=== PATIENT | female | born 1975 | race Caucasian/White ===

== ENCOUNTER → 2017-03-23 | Outpatient (CLI) | payer OTHER | LOC: FIMAGING 08:08 | PROVIDERS: ATTEND Obstetrics & Gynecology | DX: Z12.31 Encounter for screening mammogram for malignant neoplasm of breast (principal) | CPT/HCPCS: G0202 ==

== ENCOUNTER → 2017-06-27 | Outpatient (CLI) | payer OTHER | LOC: FIMAGING 08:50 | PROVIDERS: ATTEND Nurse Practitioner Women's Health | DX: N60.01 Solitary cyst of right breast (principal) ==

== ENCOUNTER → 2018-10-22 | Outpatient (CLI) | payer OTHER | LOC: FIMAGING 07:38 | PROVIDERS: ATTEND Radiology Diagnostic Radiology | DX: I83.812 Varicose veins of left lower extremity with pain (principal); I87.8 Other specified disorders of veins; I87.2 Venous insufficiency (chronic) (peripheral); N90.89 Other specified noninflammatory disorders of vulva and perineum ==

== ENCOUNTER 2019-02-01 07:41 | Day surgery (SDC) | payer OTHER ==
[2019-02-01] MEDS ORDERED: NS 1,000 ML IV ONE (07:48)
[2019-02-01] MEDS ORDERED: PROTAMINE SULFATE 50 MG/5 ML VIAL IVP PRN (07:48)
[2019-02-01] MEDS ORDERED: ALTEPLASE 2 MG VIAL IVP PRN (07:48)
[2019-02-01] MEDS ORDERED: fentaNYL 100 MCG/2 ML INJ IVP PRN (07:48)
[2019-02-01] MEDS ORDERED: NALOXONE HCL 0.4 MG/ML INJ IVP PRN (07:48)
[2019-02-01] MEDS ORDERED: ceFAZolin 2 GM/DEXTROSE 100 ML IV ONE (07:48)
[2019-02-01] MEDS ORDERED: ONDANSETRON 4 MG/2 ML VIAL IVP ONE (07:48)
[2019-02-01] MEDS ORDERED: MIDAZOLAM 2 MG/2 ML VIAL IVP PRN (07:48)
[2019-02-01] MEDS ORDERED: MEPERIDINE 25 MG/ML SYR IVP PRN (07:48)
[2019-02-01] MEDS ORDERED: HEPARIN 10,000 UNIT/10 ML MDV (1,000 UNIT/ML) IVP PRN (07:48)
[2019-02-01] MEDS ORDERED: GLUCAGON HCL 1 MG VIAL IVP PRN (07:48)
[2019-02-01] MEDS ORDERED: FLUMAZENIL 0.5 MG/5 ML MDV IVP PRN (07:48)
[2019-02-01] MEDS ORDERED: SODIUM TETRADECYL SULFATE 3% 2 ML VIAL IV ONE (08:43)
[2019-02-01] MEDS ORDERED: LIDO/EPI 1% **for epidural** 30 ML SDV ONE (08:43)
[2019-02-01] MEDS ORDERED: fentaNYL 100 MCG/2 ML INJ ONE (09:05)
[2019-02-01] MEDS ORDERED: FLUMAZENIL 0.5 MG/5 ML MDV IVP ONE ×2 (09:05→09:54)
[2019-02-01] MEDS ORDERED: MIDAZOLAM 2 MG/2 ML VIAL ONE (09:05)
[2019-02-01] MEDS ORDERED: NALOXONE HCL 0.4 MG/ML INJ ONE ×2 (09:05→09:54)
--- NOTE | 2019-02-01 09:05 | PDGENHP ---
History & Physical Chief Complaint: LT LEG AND VULVAR VARICES History of Present Illness: PELVIC CONGESTION SYNDROME Pertinent Past, Social, Family History: N/A Relevant Physical Exam: ROPEY VARICOSE VEINS MAPPED OUT. Cardiorespiratory Assessment: RRR, CTA
--- NOTE | 2019-02-01 09:06 | PDPROPOC ---
Sedation Plan of Care Sedation Plan of Care: vital signs stable, mental status noted, patient educated of risks, benefits, alternatives, patient can tolerate sedation ASA Classification: ASA 1 Planned drugs: fentanyl, midazolam Mallampati Score: Class 2 Mallampati Reference Image: Patient passed 3-3-2 rule?: Yes
[2019-02-01] MEDS ORDERED: ONDANSETRON 4 MG/2 ML VIAL IVP PRN (10:09)
[2019-02-01] MEDS ORDERED: ACETAMINOPHEN 325 MG TAB PO PRN (10:09)
--- NOTE | 2019-02-01 10:09 | PDRADPN ---
Radiology Procedure Note Date of Procedure: 02/01/19 Radiologist: Raina Donahue Anesthesia: IV Sedation Pre-op Diagnosis: LLE VARICOSE VEINS Post-op Diagnosis: SAME Indication: PAIN AND SWELLING Procedure: PHLEBECTOMY AND SCLEROTHERAPY Inf/Abcess present in the surg proc area at time of surgery?: No
[2019-02-01 13:51] VITALS: BP 92/65
== END 2019-02-01 14:14 | disposition home or self-care (01) ==
LOC: FIMAGING 07:41
PROVIDERS: ATTEND Radiology Diagnostic Radiology
PROC: 3E033TZ Introduction of Destructive Agent into Peripheral Vein, Percutaneous Approach (ICD-10-PCS; principal; 2019-02-01 10:11)
PROC: 06BY3ZZ Excision of Lower Vein, Percutaneous Approach (ICD-10-PCS; principal; 2019-02-01 10:11)
DX: I86.3 Vulval varices (principal); I83.812 Varicose veins of left lower extremity with pain; N94.89 Other specified conditions associated with female genital organs and menstrual cycle
CPT/HCPCS: J0690; J2250; J2310; J3010

== ENCOUNTER 2019-02-04 07:44 | Day surgery (SDC) | payer OTHER ==
[2019-02-04] MEDS ORDERED: ONDANSETRON 4 MG/2 ML VIAL IVP ONE (07:51)
[2019-02-04] MEDS ORDERED: PROTAMINE SULFATE 50 MG/5 ML VIAL IVP PRN (07:51)
[2019-02-04] MEDS ORDERED: NALOXONE HCL 0.4 MG/ML INJ IVP PRN (07:51)
[2019-02-04] MEDS ORDERED: MEPERIDINE 25 MG/ML SYR IVP PRN (07:51)
[2019-02-04] MEDS ORDERED: HEPARIN 10,000 UNIT/10 ML MDV (1,000 UNIT/ML) IVP PRN (07:51)
[2019-02-04] MEDS ORDERED: MIDAZOLAM 2 MG/2 ML VIAL IVP PRN (07:51)
[2019-02-04] MEDS ORDERED: fentaNYL 100 MCG/2 ML INJ IVP PRN (07:51)
[2019-02-04] MEDS ORDERED: ALTEPLASE 2 MG VIAL IVP PRN (07:51)
[2019-02-04] MEDS ORDERED: GLUCAGON HCL 1 MG VIAL IVP PRN (07:51)
[2019-02-04] MEDS ORDERED: FLUMAZENIL 0.5 MG/5 ML MDV IVP PRN (07:51)
[2019-02-04] MEDS ORDERED: NS 1,000 ML IV ONE (07:51)
[2019-02-04] MEDS ORDERED: IOPAMIDOL (ISOVUE-300) 100 ML BTL ONE ×2 (08:05→10:30)
[2019-02-04] MEDS ORDERED: LIDOCAINE 1% 300 MG/30 ML SDV ONE (08:05)
[2019-02-04] MEDS ORDERED: SODIUM TETRADECYL SULFATE 3% 2 ML VIAL IV ONE (08:12)
--- NOTE | 2019-02-04 08:38 | PDPROPOC ---
Sedation Plan of Care Sedation Plan of Care: vital signs stable, mental status noted, patient educated of risks, benefits, alternatives, patient can tolerate sedation ASA Classification: ASA 2 Planned drugs: fentanyl, midazolam Mallampati Score: Class 2 Mallampati Reference Image: Patient passed 3-3-2 rule?: Yes
--- NOTE | 2019-02-04 08:38 | PDGENHP ---
History & Physical Chief Complaint: PELVIC CONGESTION; vulvar pain History of Present Illness: treated LLE varicose veins two days age Pertinent Past, Social, Family History: n/a Relevant Physical Exam: no acute distress Cardiorespiratory Assessment: rrr, cta
[2019-02-04] MEDS ORDERED: ACETAMINOPHEN 325 MG TAB PO PRN (10:29)
[2019-02-04] MEDS ORDERED: ONDANSETRON 4 MG/2 ML VIAL IVP PRN (10:29)
--- NOTE | 2019-02-04 10:33 | PDRADPN ---
Radiology Procedure Note Date of Procedure: 02/04/19 Radiologist: Raina Donahue Anesthesia: IV Sedation Pre-op Diagnosis: PELVIC PAIN Post-op Diagnosis: SAME Indication: PELVIC CONGESTION SYNDROME Procedure: GONAL VEIN EMBOLIZATION Inf/Abcess present in the surg proc area at time of surgery?: No
[2019-02-04 12:20] VITALS: BP 137/62
== END 2019-02-04 11:50 | disposition home or self-care (01) ==
LOC: FIMAGING 07:44
PROVIDERS: ATTEND Radiology Diagnostic Radiology
DX: N94.89 Other specified conditions associated with female genital organs and menstrual cycle (principal)
CPT/HCPCS: 37241; 75736; 99152; 99153; C1769; C1892; C2628; J1644; J2250; J2310; J3010; Q9967

== ENCOUNTER → 2019-02-27 | Outpatient (CLI) | payer OTHER | LOC: FIMAGING 16:23 ==